=== PATIENT | female | born 1965 | race African-American/Black ===

== ENCOUNTER → 2019-07-11 | Outpatient (CLI) | payer OTHER ==
[~2019-07-11] MED LIST: AMIT10TA PO; ASPI325T8 PO; BUTA1CAP29 PO; CETI10CA PO; CETI10TA22 PO; DULO30CA2 PO; ERGO500027 PO; ESOM40CA PO; FLUT1DIS3 IH; LEVO100T PO; LEVO112T2 PO; LEXAPRO20 MG PO; LORA10TA3 PO; LOSA100T14 PO; MAG SALT PO; MELA3TAB56 PO; METF500T11 PO; MONT10TA80 PO; NAPR-514 PO; NIFE20CA PO; OMEP20CA5 PO; PANT40TA5 PO; PROP40TA PO; RANI-376 PO; ROPI5TAB4 PO; SITA1TAB7 PO; SOLI10TA2 PO
[2019-07-11 09:23] VITALS: BP 125/83
--- NOTE | 2019-07-11 09:29 | NUR ---
PT NEW TO PAIN CLINIC HERE IN [place]. HAD PREVIOUS TREATMENT WITH A STIMULATOR PLACED IN [place] IN 08/2017. STIMULATOR IS STILL WORKING LONG BATTERY IS CHARGED , BUT SHE IS ALSO HAVING PAIN IN THE SAME AREA S BEFORE IF SHE MOVES HER BACK A CERTAIN WAY. SHE DOES HAVE DIABETES DOESN'T CHECK IT DAILY AND LAST SUGAR WAS ON MONDAY AM AND IT WAS 147. NO ABX IN THE LAST 4 WEEKS AND NO COUGH COLD OR FEVER.
== END | disposition home or self-care (01) ==
LOC: SURG 08:58
PROVIDERS: ATTEND Anesthesiology Pain Medicine
DX: M51.36 Other intervertebral disc degeneration, lumbar region (principal); M43.06 Spondylolysis, lumbar region; G89.4 Chronic pain syndrome; G43.711 Chronic migraine without aura, intractable, with status migrainosus; J45.909 Unspecified asthma, uncomplicated; G47.30 Sleep apnea, unspecified; K21.9 Gastro-esophageal reflux disease without esophagitis; Z79.1 Long term (current) use of non-steroidal anti-inflammatories (NSAID); Z79.899 Other long term (current) drug therapy; Z79.891 Long term (current) use of opiate analgesic
CPT/HCPCS: 99204

== ENCOUNTER 2019-11-09 09:31 | Emergency (ER) | payer OTHER ==
[~2019-11-09] VITALS: Ht 170.2 cm; Wt 97.5 kg
[2019-11-09 09:31] VITALS: BP 117/78
[~2019-11-09 09:31] MED LIST changes: -CETI10TA22 PO; +CETI10TA24 PO
[2019-11-09] MEDS ORDERED: LIDOCAINE 1% Multi-Dose 20 ML VIAL. ONE (09:40)
[2019-11-09] MEDS ORDERED: ONDANSETRON ODT 4 MG TAB.RAPDIS ONE (09:49)
--- NOTE | 2019-11-09 09:56 | PHYS DOC ---
Past History Past Medical History: Asthma, Diabetes, GERD, Hypertension, Hypothyroid Past Surgical History: Other Smoking: Non-smoker Alcohol Use: Rarely Drug Use: None Adult General Chief Complaint Chief Complaint: LACERATION/AVULSION HPI HPI Patient is a 53-year-old female who presents with injury to her left middle finger that she sustained while cutting hair. Patient states that the scissors stepped off some of the skin on the dorsal aspect of her middle finger. Bleeding under control with direct pressure. Patient indicates that she is not up-to-date on her tetanus. She rates pain as mild. Injury occurred just prior to arrival.[] Review of Systems Review of Systems Constitutional: Denies fever or chills [] Respiratory: Denies cough or shortness of breath [] Cardiovascular: No additional information not addressed in HPI [] Integument: Positive laceration left middle finger[] Current Medications Current Medications Current Medications Medications (Trade) Dose Ordered Sig/Maxwell Start Time Stop Time Status Last Admin Dose Admin Lidocaine HCl 20 ml 1X ONCE 11/09/19 09:45 11/09/19 09:46 UNV Ondansetron HCl (Zofran Odt) 4 mg STK-MED ONCE 11/09/19 09:49 11/09/19 09:50 DC Allergies Allergies Allergies Coded Allergies Type Severity Reaction Last Updated Verified lisinopril Allergy Severe Swelling 07/11/19 Yes metoprolol Allergy Severe Swelling 07/11/19 Yes NICANOR Inhibitors Allergy Intermediate swelling 07/11/19 No sumatriptan Allergy Intermediate SEVERE HEADACHE 07/11/19 Yes Physical Exam Physical Exam Constitutional: Well developed, well nourished, no acute distress, non-toxic appearance. [] Cardiovascular:Heart rate regular rhythm, no murmur [] Lungs & Thorax: Bilateral breath sounds clear to auscultation [] Skin: There is a 1.25 cm laceration/skin avulsion on the door/back to the left middle finger extending through the dermis, with sharp margins. [] EKG EKG [] Radiology/Procedures Radiology/Procedures [] Course & Med Decision Making Course & Med Decision Making Pertinent Labs and Imaging studies reviewed. (See chart for details) Laceration Repair by me: Anesthesia: 1% lidocaine locally Location: Dorsal aspect left middle finger Tendon/Joint/Nerves: No injury Foreign body: None detected after copious irrigation and exploration Technique: A total of 3 Simple Interrupted Sutures were placed utilizing 5-0 Ethilon suture material. Complexity: No subcutaneous sutures/mucosal repair/edge excision Post Closure Length: 1.25 cm Patient's bleeding was easily controlled in the department and there is no indication of anemia. No evidence of compartment syndrome, neurologic injury, vascular injury, open joint, tendon laceration, or foreign body. Patient is appropriate for outpatient follow up. 48 hour wound check. Scar minimization instructions given. Dragon Disclaimer Dragon Disclaimer This electronic medical record was generated, in whole or in part, using a voice recognition dictation system. Departure Departure: Impression: Primary Impression: Finger laceration Disposition: HOME, SELF-CARE Condition: STABLE Referrals: JEFFREY RODRIGUEZ (PCP) Patient Instructions: Laceration Care, Adult Additional Instructions: Return for suture removal in 10 days. Problem Qualifiers Primary Impression: Finger laceration Encounter type: initial encounter Finger: middle finger Damage to nail status: without damage Foreign body presence: without foreign body Laterality: left Qualified Codes: S61.213A - Laceration without foreign body of left middle finger without damage to nail, initial encounter JESSENIA TAN Jr. DO Nov 09, 2019 09:56
[2019-11-09] MEDS ORDERED: DIPHTH,PERTUSS(ACELL),TET TOX 0.5 ML DISP.SYRIN. VAX IM ONE ×2 (10:02→10:15)
[2019-11-09] MEDS ORDERED: ONDA4TAB12 PO ×2 (10:09→10:10)
[2019-11-09] MEDS ORDERED: LIDOCAINE 1% Multi-Dose 20 ML VIAL. IJ ONE (10:15)
[2019-11-09] MEDS ORDERED: ONDANSETRON ODT 4 MG TAB.RAPDIS PO ONE (10:15)
== END 2019-11-09 10:10 | disposition home or self-care (01) ==
LOC: ER 09:31
DX: S61.213A Laceration without foreign body of left middle finger without damage to nail, initial encounter (principal); J45.909 Unspecified asthma, uncomplicated; E11.9 Type 2 diabetes mellitus without complications; K21.9 Gastro-esophageal reflux disease without esophagitis; I10 Essential (primary) hypertension; E03.9 Hypothyroidism, unspecified; Z88.8 Allergy status to other drugs, medicaments and biological substances; W45.8XXA Other foreign body or object entering through skin, initial encounter; Y93.89 Activity, other specified; Y92.89 Other specified places as the place of occurrence of the external cause; Y99.8 Other external cause status
CPT/HCPCS: 12001; 90471; 90715; 99283; Q0162

== ENCOUNTER → 2020-06-16 | Outpatient (CLI) | payer OTHER ==
[~2020-06-16] MED LIST changes: +MELA3TAB4 PO; -MELA3TAB56 PO; +METF-658 PO; -METF500T11 PO; +ONDA4TAB12 PO
--- NOTE | 2020-06-30 16:16 | RAD ---
DATE: 06/16/2020 8:35 AM EXAM: MAMMO CHAR SCREENING BILATERAL HISTORY: Screening. COMPARISON: None currently available. Bilateral CC and MLO views of the breasts were performed. Bilateral breast tomosynthesis was performed in CC and MLO projections. This study was interpreted with the benefit of Computerized Aided Detection (CAD). FINDINGS: Breast Density: HETERO The breast parenchyma Is heterogeneously dense, which could reduce sensitivity of mammography. Breast parenchyma level C No suspicious masses, microcalcifications or architectural distortion is present to suggest malignancy in either breast. The visualized axillae are unremarkable. IMPRESSION: No mammographic evidence of malignancy. BI-RADS CATEGORY: 1 NEGATIVE RECOMMENDED FOLLOW-UP: 12M 12 MONTH FOLLOW-UP Annual screening mammography is recommended, unless clinically indicated sooner based on symptoms or change in physical exam. PQRS compliance statement: Patient information was entered into a reminder system with a target due date for the next mammogram. Mammography is a sensitive method for finding small breast cancers, but it does not detect them all and is not a substitute for careful clinical examination. A negative mammogram does not negate a clinically suspicious finding and should not result in delay in biopsying a clinically suspicious abnormality. "Our facility is accredited by the [employer] Mammography Program."
== END | disposition home or self-care (01) ==
LOC: MAMMO 08:28
PROVIDERS: ATTEND Nurse Practitioner Family
DX: Z12.31 Encounter for screening mammogram for malignant neoplasm of breast (principal)
CPT/HCPCS: 77063; 77067

== ENCOUNTER → 2021-09-02 | Outpatient (CLI) | payer OTHER ==
[~2021-09-02] MED LIST changes: -CETI10TA24 PO; +CETI10TA74 PO; -PANT40TA5 PO; +PANT40TA6 PO
--- NOTE | 2021-09-02 13:12 | RAD ---
History: 55-year-old a symptomatically the patient presents for routine screening mammogram. PROCEDURE: 3-D tomosynthesis was performed of the breasts bilaterally. 2-D C-view craniocaudal and mediolateral oblique digital mammograms were also generated. The images were also evaluated with [employer]-aided detection and the CAD results were analyzed. Previous: Bilateral mammogram from 06/16/2020 and priors. FINDINGS: Density level B: There are scattered fibroglandular densities. There are no suspicious masses, suspic ious microcalcifications or areas of architectural distortion.Benign stable nodularities are seen in both breasts. IMPRESSION: Benign mammogram. Patient information was entered into the [employer] reminder system with a target due date for the next screening mammogram . Routine annual screening mammogram in one year ad vised. BI-RADS Category 2: Benign. A mammogram does not have 100% sensitivity and therefore a negative imaging study should not delay fu rther work up of a suspicious abnormality. PQRS compliance statement: Patient information was entered into the [employer] reminder system with a ta rget due date for the next screening mammogram . Routine annual screening mammogram in one year advis ed. "Our facility is accredited by the [employer] Mammography Program." Electronically signed by: Emmy Souza MD (09/02/2021 1:10 PM) [id number]
== END ==
LOC: MAMMO 11:14
PROVIDERS: ATTEND Nurse Practitioner Family
DX: Z12.31 Encounter for screening mammogram for malignant neoplasm of breast (principal)
CPT/HCPCS: 77063; 77067